=== PATIENT | male | born 1945 | race Caucasian/White ===

== ENCOUNTER → 2017-03-07 | Outpatient (POV) | payer MEDICARE, OTHER, SELFPAY | PROVIDERS: Visit Provider Podiatrist ==

== ENCOUNTER 2017-04-15 11:19 | Outpatient (POV) | payer MEDICARE, OTHER, SELFPAY | END 2017-04-15 11:40 | disposition home or self-care (01) | PROVIDERS: Visit Provider Podiatrist | DX: L60.2 Onychogryphosis (principal); S91.202D Unspecified open wound of left great toe with damage to nail, subsequent encounter; M79.675 Pain in left toe(s); M79.674 Pain in right toe(s) | CPT/HCPCS: 99212; G0127 ==

== ENCOUNTER → 2018-03-12 10:28 | Outpatient (POV) | payer MEDICARE, OTHER, SELFPAY | PROVIDERS: Visit Provider Podiatrist | DX: Z00.00 Encounter for general adult medical examination without abnormal findings (principal) ==

== ENCOUNTER → 2018-07-30 11:26 | Outpatient (CLI) | payer MEDICARE, OTHER, SELFPAY ==
--- NOTE | 2018-07-30 11:37 | XR_ITS ---
XR foot wt bearing LT 3V HISTORY: ITS.REASON: pain ORDERING PHYSICIAN: Adeline Urbano DPM PATIENT AGE: 73 years COMPARISON: None FINDINGS: There is moderate pes planus with osteoarthritic change at the navicular cuneiform joint. There is subarticular cyst at the navicular laterally at 6 mm. No fracture or dislocation. Prominent calcaneal spur is noted at 15 mm. There is diffuse vascular calcification. No bony destructive process. IMPRESSION: Pes planus with osteoarthritis
== END ==
PROVIDERS: PCP Family Medicine; Visit Provider Podiatrist
DX: M79.675 Pain in left toe(s) (principal)
CPT/HCPCS: 73630